=== PATIENT | male | born 1985 | race Caucasian/White ===

== ENCOUNTER 2018-12-17 03:07 | Emergency (ER) | payer BC, OTHER ==
[2018-12-17] MEDS ORDERED: Adacel (T-DAP) 0.5 ML SYRINGE ONE (04:33)
[2018-12-17] MEDS ORDERED: Lidocaine 2% MPF 10 ML AMP (For Epidural Use) ONE (04:33)
[2018-12-17] MEDS ORDERED: Lidocaine 1% w/Epinephrine 1:100K 20 ML VIAL ONE (04:34)
[2018-12-17 06:21] LABS: #Basophils 0.1 thou/uL (0.0-0.2); #Eosinphils 0.1 thou/uL (0.0-0.7); #Lymphocytes 2.7 thou/uL (1.20-3.40); #Monocytes 0.7 thou/uL (0.11-0.59); #Neutrophils 7.4 thou/uL (1.40-6.50); %Basophils 0.5 % (0.0-1.0); %Eosinophils 0.9 % (0.0-10.0); %Lymphocytes 24.5 % (21.0-51.0); %Monocytes 6.4 % (0.0-10.0); %Neutrophils 67.7 % (42.0-75.0); Mean Corpuscular HGB CONC 34.5 g/dL (32.0-36.0); Mean Corpuscular Hemoglobin 29.7 pg (27.0-31.0); Mean Corpuscular Volume 85.9 fL (78.0-98.0); Mean Platelet Volume 8.9 fL (7.4-10.4); Platelet Count 257 thou/uL (130-400); RBC Distribution Width 11.7 % (11.5-14.5); Red Blood Cell (RBC) Count 5.74 mill/uL (4.70-6.10); White Blood Cell (WBC) Count 10.9 thou/uL (4.8-10.8)
[2018-12-17 06:43] LABS: ALT (SGPT) 36 U/L (8-55); AST (SGOT) 26 U/L (5-34); Albumin 4.7 g/dL (3.5-5.0); Alkaline Phosphatase 106 U/L (40-110); Anion Gap 16 mmol/L (10-20); BUN (Urea Nitrogen) 5 mg/dL (8.9-20.6); Bilirubin, Total 0.5 mg/dL (0.2-1.2); Calc. Creatinine Clearance 0 mL/min (70-130); Calcium 8.9 mg/dL (7.8-10.44); Carbon Dioxide 23 mmol/L (22-29); Chloride 107 mmol/L (98-107); Estimated GFR-MDRD Greater than 90; Globulin 2.5 g/dL (2.4-3.5); Glucose 114 mg/dL (70-105); Potassium 3.6 mmol/L (3.5-5.1); Protein, Total 7.2 g/dL (6.0-8.3); Sodium 142 mmol/L (136-145)
[2018-12-17 06:44] LABS: Acetaminophen Less than 6.0 mcg/mL (10.0-30.0); Alcohol 263 mg/dL (Less than 10); Salicylate Less than 8.0 mg/dL (15.0-30.0)
[2018-12-17 06:46] LABS: Amphetamine Not Detected (NotDetected); Barbiturates Screen Not Detected (NotDetected); Benzodiazepine Screen Not Detected (NotDetected); Cocaine Metabolite Screen Not Detected (NotDetected); Medtox Control Line Valid? VALID (VALID); Medtox Reader # READER 4; Methadone Not Detected (NotDetected); Methamphetamine Not Detected (NotDetected); Opiate Screen Not Detected (NotDetected); Oxycodone Screen Not Detected (NotDetected); Phencyclidine (PCP) Not Detected (NotDetected); THC/Cannabinoid Screen Detected (NotDetected); Tricyclic Screen Not Detected (NotDetected)
[2018-12-17] MEDS ORDERED: Lithium Carbonate 150 MG CAP PO SCH (09:00)
[2018-12-17] MEDS ORDERED: Lorazepam 1 MG TAB ONE ×2 (10:17→16:37)
[2018-12-17] MEDS ORDERED: Acetaminophen 500 MG TAB ONE ×2 (10:35→10:36)
[2018-12-18] MEDS ORDERED: Lorazepam 1 MG TAB ONE (02:46)
[2018-12-18] MEDS ORDERED: Lithium Carbonate 150 MG CAP PO SCH (09:00)
[2018-12-18] MEDS ORDERED: Bupropion 150 MG XL TAB PO SCH (09:00)
[2018-12-18] MEDS ORDERED: VIIBRYD 20 MG PO SCH (09:00)
== END 2018-12-18 08:54 ==
LOC: ERS 03:07
DX: S01.511A Laceration without foreign body of lip, initial encounter (principal); F32.9 Major depressive disorder, single episode, unspecified; F17.200 Nicotine dependence, unspecified, uncomplicated; X58.XXXA Exposure to other specified factors, initial encounter
CPT/HCPCS: 12051; 36415; 80053; 80178; 80306; 80307; 84443; 85025; 90471; 90715; J2001

== ENCOUNTER 2020-02-05 12:24 | Outpatient (CLI) | payer BC ==
--- NOTE | 2020-02-05 12:52 | RAD ---
XR Chest Pa Lat STANDARD HISTORY: Cough COMPARISON: 03/10/2013 FINDINGS: The heart size is normal. The lungs are well expanded without focal areas of consolidation, pneumothorax or pleural effusions. IMPRESSION: No radiographic evidence of acute cardiopulmonary process. Plain radiographs can be falsely negative in the setting of viral pneumonias.
--- NOTE | 2020-02-05 13:47 | RAD ---
SINUSES: 02/05/20 Three views. HISTORY: Sinusitis. There is mucosal thickening seen in the periphery of both maxillary sinuses, more prominent on the ri ght. Frontal air cells are aerated although I cannot [id number] mucosal edema. No air fluid level seen. IMPRESSION: Evidence of paranasal sinus mucosal edema in the maxillary sinuses. POS: [facility]
== END 2020-02-05 12:25 | disposition home or self-care (01) ==
LOC: BICRAD 12:24
PROVIDERS: ATTEND Internal Medicine
DX: R05 Cough (principal); R07.9 Chest pain, unspecified; J01.90 Acute sinusitis, unspecified; J32.0 Chronic maxillary sinusitis
CPT/HCPCS: 70220; 71046

== ENCOUNTER 2020-04-17 23:28 | Emergency (ER) | payer BC ==
[2020-04-18] MEDS ORDERED: Oxymetazoline HCl 0.05% (30 ML BOT) ONE (00:09)
== END 2020-04-18 00:58 | disposition home or self-care (01) ==
LOC: ERS 23:28
DX: R09.81 Nasal congestion (principal); F17.290 Nicotine dependence, other tobacco product, uncomplicated
CPT/HCPCS: 36415; 80178; 99283

== ENCOUNTER 2020-05-13 10:38 | Emergency (ER) | payer BC ==
[2020-05-13] MEDS ORDERED: HYDROcodone/Acetaminophen 10/325 mg Tablet ONE (11:17)
== END 2020-05-13 11:42 | disposition home or self-care (01) ==
LOC: ERS 10:38
DX: S29.011A Strain of muscle and tendon of front wall of thorax, initial encounter (principal); F17.290 Nicotine dependence, other tobacco product, uncomplicated; X50.9XXA Other and unspecified overexertion or strenuous movements or postures, initial encounter
CPT/HCPCS: 71045

== ENCOUNTER 2020-05-16 09:46 | Outpatient (CLI) | payer BC | END 2020-05-16 09:47 | disposition home or self-care (01) | LOC: CTENTCT 09:46 | PROVIDERS: ATTEND Specialist | DX: J32.9 Chronic sinusitis, unspecified (principal) | CPT/HCPCS: 70486 ==

== ENCOUNTER 2020-06-02 14:23 | Outpatient (CLI) | payer BC ==
[2020-06-03 04:03] LABS: SARS-CoV-2 PCR by NAA Not Detected (NotDetected)
== END 2020-06-02 14:24 | disposition home or self-care (01) ==
LOC: LABBT 14:23
PROVIDERS: ATTEND Specialist
DX: Z01.812 Encounter for preprocedural laboratory examination (principal); J32.9 Chronic sinusitis, unspecified; J30.9 Allergic rhinitis, unspecified; J34.2 Deviated nasal septum; J34.3 Hypertrophy of nasal turbinates; Z20.822 Contact with and (suspected) exposure to COVID-19
CPT/HCPCS: 87635; U0003; U0005

== ENCOUNTER 2020-08-17 07:30 | Emergency (ER) | payer BC ==
[2020-08-17] MEDS ORDERED: Proparacaine 0.5% Opth 15 ML BOT ONE (08:00)
[2020-08-17] MEDS ORDERED: Fluorescein Opthalmic Strip ONE (08:00)
== END 2020-08-17 08:25 | disposition home or self-care (01) ==
LOC: ERS 07:30
DX: S05.02XA Injury of conjunctiva and corneal abrasion without foreign body, left eye, initial encounter (principal); H10.212 Acute toxic conjunctivitis, left eye; F17.290 Nicotine dependence, other tobacco product, uncomplicated; Z79.899 Other long term (current) drug therapy; X58.XXXA Exposure to other specified factors, initial encounter
CPT/HCPCS: 99283

== ENCOUNTER 2020-09-10 10:06 | Emergency (ER) | payer BC ==
[2020-09-10] MEDS ORDERED: Dexamethasone 4 mg/ml Vial ONE (11:39)
== END 2020-09-10 11:35 | disposition home or self-care (01) ==
LOC: ERS 10:06
DX: J01.90 Acute sinusitis, unspecified (principal); F17.290 Nicotine dependence, other tobacco product, uncomplicated; Z79.899 Other long term (current) drug therapy
CPT/HCPCS: 96372; 99283; J1100

== ENCOUNTER 2021-01-04 01:25 | Emergency (ER) | payer BC ==
[2021-01-04 02:13] LABS: #Basophils 0.1 thou/uL (0.0-0.2); #Eosinphils 1.2 thou/uL (0.0-0.7); #Lymphocytes 2.9 thou/uL (1.20-3.40); #Monocytes 0.6 thou/uL (0.11-0.59); #Neutrophils 5.9 thou/uL (1.40-6.50); %Eosinophils 11.5 % (0.0-10.0); %Lymphocytes 27.1 % (21.0-51.0); %Monocytes 5.2 % (0.0-10.0); %Neutrophils 55.2 % (42.0-75.0); Hemoglobin 14.4 g/dL (14.0-18.0); Mean Corpuscular Hemoglobin 30.5 pg (27.0-31.0); Mean Corpuscular Volume 92.6 fL (78.0-98.0); Mean Platelet Volume 8.9 fL (7.4-10.4); Platelet Count 209 thou/uL (130-400); RBC Distribution Width 11.5 % (11.5-14.5); White Blood Cell (WBC) Count 10.7 thou/uL (4.8-10.8)
[2021-01-04 02:43] LABS: ALT (SGPT) 81 U/L (8-55); AST (SGOT) 48 U/L (5-34); Albumin 3.7 g/dL (3.5-5.0); Alkaline Phosphatase 98 U/L (40-110); Anion Gap 12 mmol/L (10-20); BUN (Urea Nitrogen) 14 mg/dL (8.9-20.6); Bilirubin, Total 0.3 mg/dL (0.2-1.2); Calc. Creatinine Clearance 0 mL/min (70-130); Carbon Dioxide 26 mmol/L (22-29); Chloride 106 mmol/L (98-107); Globulin 2.3 g/dL (2.4-3.5); Glucose 100 mg/dL (70-105); Potassium 4.1 mmol/L (3.5-5.1); Sodium 140 mmol/L (136-145)
[2021-01-04] MEDS ORDERED: predniSONE 20 MG TAB ONE (03:01)
== END 2021-01-04 04:25 | disposition home or self-care (01) ==
LOC: ERS 01:25
DX: J45.901 Unspecified asthma with (acute) exacerbation (principal); F17.290 Nicotine dependence, other tobacco product, uncomplicated
CPT/HCPCS: 36415; 71045; 80053; 85025; 85379; 93005; J7512

== ENCOUNTER 2021-12-09 14:02 | Outpatient (CLI) | payer BC | END 2021-12-09 14:03 | disposition home or self-care (01) | LOC: RAD 14:02 | PROVIDERS: ATTEND Internal Medicine Critical Care Medicine | DX: R06.09 Other forms of dyspnea (principal) | CPT/HCPCS: 71046 ==

== ENCOUNTER 2023-02-17 07:17 | Outpatient (CLI) | payer BC | END 2023-02-17 07:18 | disposition home or self-care (01) | LOC: ULT 07:17 | PROVIDERS: ATTEND Internal Medicine Gastroenterology | DX: K90.0 Celiac disease (principal); R79.89 Other specified abnormal findings of blood chemistry; F31.9 Bipolar disorder, unspecified; K74.60 Unspecified cirrhosis of liver; R16.1 Splenomegaly, not elsewhere classified | CPT/HCPCS: 76705 ==

== ENCOUNTER 2023-08-12 05:18 | Emergency (ER) | payer BC | END 2023-08-12 07:39 | disposition home or self-care (01) | LOC: ERS 05:18 | DX: H60.502 Unspecified acute noninfective otitis externa, left ear (principal); H73.92 Unspecified disorder of tympanic membrane, left ear; F17.290 Nicotine dependence, other tobacco product, uncomplicated | CPT/HCPCS: 99282 ==

== ENCOUNTER 2023-12-19 15:29 | Outpatient (CLI) | payer BC | END 2023-12-19 15:30 | disposition home or self-care (01) | LOC: RAD 15:29 | PROVIDERS: ATTEND Internal Medicine Critical Care Medicine | DX: R06.00 Dyspnea, unspecified (principal); R91.8 Other nonspecific abnormal finding of lung field | CPT/HCPCS: 71046 ==

== ENCOUNTER 2025-01-31 15:53 | Emergency (ER) | payer BC ==
[2025-01-31] MEDS ORDERED: Magnesium 2 GM/50 ML BAG (IN WATER) ONE (16:28)
[2025-01-31] MEDS ORDERED: Albuterol 2.5 MG (0.5 mL) NEB ONE (16:37)
[2025-01-31 16:47] LABS: #Basophils 0.13 10x3/uL (0.0-0.2); #Eosinophils 0.84 10x3/uL (0.0-0.7); #Monocytes 0.74 10x3/uL (0.11-0.59); #Neutrophils 12.72 10x3/uL (1.40-6.50); %Basophils 0.8 % (0.0-1.0); %Eosinophils 5.0 % (0.0-10.0); %Lymphocytes 12.8 % (21.0-51.0); %Monocytes 4.4 % (0.0-10.0); %Neutrophils 76.5 % (42.0-75.0); Hematocrit 51.4 % (42.0-52.0); Hemoglobin 17.0 g/dL (14.0-18.0); Mean Corpuscular Hemoglobin 28.3 pg (27.0-31.0); Mean Corpuscular Volume 85.5 fL (78.0-98.0); Platelet Count 291 10x3/uL (130-400); Red Blood Cell (RBC) Count 6.01 mill/uL (4.70-6.10); White Blood Cell (WBC) Count 16.64 10x3/uL (4.8-10.8)
[2025-01-31 17:19] LABS: ALT (SGPT) 18 U/L (Less than 45); AST (SGOT) 21 U/L (11-34); Albumin 4.4 g/dL (3.1-4.5); Alkaline Phosphatase 110 U/L (40-110); Anion Gap 15 mmol/L (10-20); BUN (Urea Nitrogen) 11 mg/dL (8.9-20.6); Bilirubin, Total 0.9 mg/dL (0.3-1.2); Calc. Creatinine Clearance 0 mL/min (70-130); Calcium 9.3 mg/dL (7.8-10.44); Carbon Dioxide 21 mmol/L (22-29); Chloride 107 mmol/L (98-107); Globulin 2.8 g/dL (2.4-3.5); Glucose 132 mg/dL (70-105); Potassium 3.7 mmol/L (3.5-5.1); Sodium 139 mmol/L (136-145)
== END 2025-01-31 19:15 | disposition home or self-care (01) ==
LOC: ERS 15:53
DX: J45.901 Unspecified asthma with (acute) exacerbation (principal); F17.290 Nicotine dependence, other tobacco product, uncomplicated
CPT/HCPCS: 71045; 80053; 83880; 84484; 85025; 85379; 93005; 96365; 96375; J2919; J3475; J7611

== ENCOUNTER 2025-02-02 10:12 | Emergency (ER) | payer BC ==
[2025-02-02] MEDS ORDERED: Albuterol 2.5 MG (0.5 mL) NEB ONE (10:36)
[2025-02-02 10:37] LABS: #Basophils 0.09 10x3/uL (0.0-0.2); #Eosinophils 0.33 10x3/uL (0.0-0.7); #Monocytes 0.87 10x3/uL (0.11-0.59); #Neutrophils 10.69 10x3/uL (1.40-6.50); %Basophils 0.6 % (0.0-1.0); %Eosinophils 2.1 % (0.0-10.0); %Lymphocytes 22.8 % (21.0-51.0); %Monocytes 5.6 % (0.0-10.0); %Neutrophils 68.5 % (42.0-75.0); Hematocrit 47.6 % (42.0-52.0); Hemoglobin 16.4 g/dL (14.0-18.0); Mean Corpuscular Hemoglobin 29.3 pg (27.0-31.0); Mean Corpuscular Volume 85.2 fL (78.0-98.0); Platelet Count 282 10x3/uL (130-400); Red Blood Cell (RBC) Count 5.59 mill/uL (4.70-6.10); White Blood Cell (WBC) Count 15.60 10x3/uL (4.8-10.8)
[2025-02-02] MEDS ORDERED: Dexamethasone 10 MG/ML VIAL ONE (10:37)
[2025-02-02] MEDS ORDERED: Albuterol 2.5 MG (3 mL) NEB ONE (10:37)
[2025-02-02 10:54] LABS: ALT (SGPT) 15 U/L (Less than 45); AST (SGOT) 19 U/L (11-34); Albumin 4.2 g/dL (3.1-4.5); Alkaline Phosphatase 100 U/L (40-110); Anion Gap 16 mmol/L (10-20); BUN (Urea Nitrogen) 11 mg/dL (8.9-20.6); Bilirubin, Total 0.8 mg/dL (0.3-1.2); Calc. Creatinine Clearance 0 mL/min (70-130); Calcium 8.9 mg/dL (7.8-10.44); Carbon Dioxide 24 mmol/L (22-29); Chloride 106 mmol/L (98-107); Globulin 2.6 g/dL (2.4-3.5); Glucose 98 mg/dL (70-105); Potassium 3.7 mmol/L (3.5-5.1); Sodium 142 mmol/L (136-145)
== END 2025-02-02 12:00 | disposition home or self-care (01) ==
LOC: ERS 10:12
DX: J45.901 Unspecified asthma with (acute) exacerbation (principal); F17.290 Nicotine dependence, other tobacco product, uncomplicated; F17.210 Nicotine dependence, cigarettes, uncomplicated
CPT/HCPCS: 71046; 80053; 85025; 96374; J1100; J7611